=== PATIENT | male | born 1980 | race Caucasian/White ===

== ENCOUNTER 2018-06-01 20:21 | Emergency (ER) | payer MEDICAID ==
[~2018-06-01] VITALS: Ht 172.7 cm; Wt 77.1 kg
[2018-06-02] MEDS ORDERED: DOXYCYCLINE 100MG/250ML 250 ML IV ONE (00:15)
[2018-06-02] MEDS ORDERED: TETANUS-DIPTH-ACEL PERTUSSIS 0.5ML SYRG IM ONE (00:15)
[2018-06-02] MEDS ORDERED: DOXYCYCLINE 100 MG/250 ML IV ONE (00:21)
[2018-06-02] MEDS ORDERED: ACETAMINOPHEN 325 MG TAB PO ONE (00:45)
[2018-06-02 01:20] VITALS: BP 126/79
== END 2018-06-02 01:25 | disposition short-term general hospital (02) ==
LOC: ER 20:21
DX: S01.311A Laceration without foreign body of right ear, initial encounter (principal); S01.81XA Laceration without foreign body of other part of head, initial encounter; W54.0XXA Bitten by dog, initial encounter; Y93.89 Activity, other specified; Y92.89 Other specified places as the place of occurrence of the external cause; Y99.8 Other external cause status
CPT/HCPCS: 70486; 73090; 73630; 90471; 90715; 96365; 96366; 99285; J3490

== ENCOUNTER 2018-06-04 15:36 | Emergency (ER) | payer MEDICAID ==
[~2018-06-04] VITALS: Ht 172.7 cm; Wt 77.1 kg
[2018-06-04 16:27] VITALS: BP 137/98
[2018-06-04] MEDS: cefTRIAXone SOD 1,000 MG VL IM ONE (17:00)
== END 2018-06-04 18:10 | disposition home or self-care (01) ==
LOC: ER 15:54
DX: S51.812D Laceration without foreign body of left forearm, subsequent encounter (principal); X58.XXXD Exposure to other specified factors, subsequent encounter
CPT/HCPCS: 96372; 99283; J0696